=== PATIENT | female | born 1990 | race Caucasian/White ===

== ENCOUNTER 2018-01-01 10:00 | Emergency (ER) | payer OTHER ==
[2018-01-01] MEDS ORDERED: Sodium Chloride 0.9% 1,000 ML IV STA (10:26)
[2018-01-01 10:47] LABS: HCG,QUALITATIVE URINE NEGATIVE (NEGATIVE)
[2018-01-01 10:49] LABS: SQUAMOUS EPITHIAL 4 /hpf (0-5); URINE BILIRUBIN NEGATIVE (NEGATIVE); URINE BLOOD 2+ (NEGATIVE); URINE CLARITY Hazy (Clear); URINE COLOR Yellow (YELLOW); URINE GLUCOSE (UA) NORMAL (Normal); URINE LEUKOCYTE ESTERASE NEG Leu/uL (Negative); URINE PROTEIN NEGATIVE (NEGATIVE); URINE UROBILINOGEN NORMAL mg/dL (0.2-1.0)
[2018-01-01 11:02] LABS: BASO # 0.1 K/uL (0.0-0.2); BASO % 0.4 % (0.0-2.0); EOS # 0.1 K/uL (0.0-0.7); EOS % 0.4 % (0.0-4.0); HEMOGLOBIN 13.7 g/dL (11.0-16.0); LYMPH # 1.8 K/uL (1.0-4.3); LYMPH % 12.3 % (20.0-40.0); MEAN CORPUSCULAR HEMOGLOBIN 29.6 pg (27.0-31.0); MEAN PLATELET VOLUME 8.4 fL (7.2-11.7); MONO # 0.5 K/uL (0.0-0.8); MONO % 3.7 % (0.0-10.0); NEUT # 11.9 K/uL (1.8-7.0); NEUT % 83.2 % (50.0-75.0); RBC 4.64 Mil/uL (3.80-5.20); RED CELL DISTRIBUTION WIDTH 13.1 % (11.5-14.5); WHITE BLOOD COUNT 14.3 K/uL (4.8-10.8)
[2018-01-01] MEDS ORDERED: Morphine 4 MG/ML VIAL ONE (11:02)
[2018-01-01] MEDS ORDERED: Sodium Chloride 0.9% 1,000 ML ONE (11:02)
[2018-01-01 11:13] VITALS: RESP 20
[2018-01-01 11:15] VITALS: O2SAT 100
--- NOTE | 2018-01-01 11:15 | C.PDOC ---
History Of Present Illness 27yo female, presents to ED for evaluation of left lower quadrant discomfort for the past week which has worsened since this morning. Patient reports associated nausea and vomiting as well. She denies any diarrhea, vaginal bleeding or discharge. She states her LMP was on 12/09/17 and was normal. She offers no other medical complaints. Time Seen by Provider: 01/01/18 10:07 Chief Complaint (Nursing): Abdominal Pain History Per: Patient History/Exam Limitations: no limitations Onset/Duration Of Symptoms: Days Current Symptoms Are (Timing): Worse Location Of Pain/Discomfort: LLQ Associated Symptoms: Nausea, Vomiting. denies: Urinary Symptoms Abnormal Vaginal Bleeding: No Last Menstral Period: 12/09/17 Past Medical History Reviewed: Historical Data, Nursing Documentation, Vital Signs Vital Signs: Last Vital Signs Temp 98 F 01/01/18 13:57 Pulse 82 01/01/18 13:57 Resp 20 01/01/18 13:57 BP 116/81 01/01/18 13:57 Pulse Ox 100 01/01/18 14:09 - Medical History PMH: No Chronic Diseases Surgical History: No Surg Hx Family History: States: No Known Family Hx - Social History Hx Alcohol Use: No Hx Substance Use: No - Immunization History Hx Tetanus Toxoid Vaccination: No Hx Influenza Vaccination: No Hx Pneumococcal Vaccination: No Review Of Systems Except As Marked, All Systems Reviewed And Found Negative. Constitutional: Negative for: Fever, Chills Cardiovascular: Negative for: Chest Pain Respiratory: Negative for: Shortness of Breath Gastrointestinal: Positive for: Nausea, Vomiting, Abdominal Pain. Negative for : Diarrhea Genitourinary: Negative for: Vaginal Discharge, Vaginal Bleeding Physical Exam - Physical Exam Appears: Non-toxic, In Acute Distress (painful distress, restless in bed) Skin: Normal Color, Warm, Dry Head: Atraumatic, Normacephalic Eye(s): bilateral: Normal Inspection, PERRL Nose: Normal Oral Mucosa: Moist Throat: Normal, No Erythema, No Exudate Neck: Normal ROM, Supple Chest: Symmetrical Cardiovascular: Rhythm Regular Respiratory: Normal Breath Sounds Gastrointestinal/Abdominal: Soft, Tenderness (tenderness to left suprapubic area ), No Mass, No Guarding, No Rebound Back: Normal Inspection, No CVA Tenderness Extremity: Normal ROM, No Deformity Neurological/Psych: Oriented x3 ED Course And Treatment - Laboratory Results Result Diagrams: 01/01/18 10:55 01/01/18 11:31 O2 Sat by Pulse Oximetry: 100 (RA) Pulse Ox Interpretation: Normal - CT Scan/US CT Abdomen and Pelvis Other Rad Studies (CT/US): Radiology Report Reviewed CT/US Interpretation: PROCEDURE: CT scan abdomen pelvis dated 12/23/2018. HISTORY: Left flank and LLQ pain/hematuria. COMPARISON: No prior study available for comparison. TECHNIQUE: Contiguous axial images of the abdomen pelvis performed without oral or intravenous contrast material. Additional 2 dimensional sagittal and coronal reformats provided. Reformats generated. Radiation dose: Total exam DLP =. This CT exam was performed using one or more of the following dose reduction techniques: Automated exposure control, adjustment of the mA and/or kV according to patient size, and/or use of iterative reconstruction technique. FINDINGS: LOWER THORAX: Unremarkable. Lung bases clear without focal consolidation effusion or pneumothorax. There is tiny hiatal hernia. Heart size is upper limits of normal/borderline enlarged. No significant pericardial effusion. LIVER: Unremarkable. No gross lesion or ductal dilatation. GALLBLADDER AND BILE DUCTS: The gallbladder is physiologically distended. No evidence of intraluminal gallbladder calculi. PANCREAS: Unremarkable. No mass. No ductal dilatation. SPLEEN: Unremarkable. No splenomegaly. ADRENALS: Unremarkable. KIDNEYS AND URETERS: There is asymmetry of the kidneys left-side of which is larger than the right with infiltration changes and perinephric fluid. There is mild dilatation of the left ureter with what appears represent a recently passed 2 mm calculus in the lumen of the urinary bladder. Superimposed infection not excluded. BLADDER: Small of 2 mm calcification present within the lumen of the urinary bladder consistent with recently passed left renal calculus. REPRODUCTIVE: Uterus and adnexal structures unremarkable. APPENDIX: Appendix is not seen with certainty on this study however no obvious inflammatory changes right lower quadrant of the abdomen. BOWEL: Unremarkable. No obstruction. No gross mural thickening. PERITONEUM: Unremarkable. No fluid collection. No free air. LYMPH NODES: Unremarkable. No enlarged lymph nodes. VASCULATURE: Unremarkable. No aortic aneurysm. BONES: No fracture or destructive lesion. OTHER FINDINGS: None. IMPRESSION: Findings consistent with recently passed left-sided 2 mm renal calculus which is now located in the left parasagittal posterior lumen of the urinary bladder. There is mild left-sided perinephric infiltration and fluid. The left kidney is also slightly larger in overall size compared the right kidney. . Note that the possibility of superimposed infection not excluded. Progress Note: Patient given IV Fluids, IV Morphine and Zofran. Labs and urinalysis ordered. Patient is still in pain, Lidocaine IV was ordered with improvement of symptoms. CT Scan reviewed and indicates recently passed kidney stone. Patient stable for discharge home, instructed to follow up with PCP and Urologist in 2-3 days without fail. Reassessment Condition: Improved Disposition - Disposition Referrals: Ady Ling MD [Staff Provider] - Disposition: HOME/ ROUTINE Disposition Time: 14:00 Condition: STABLE Additional Instructions: Follow up with PMD and Urologist within 1-2 days. REturn to ED if feel worse. Prescriptions: Nitrofurantoin Macrocrystals [Macrobid] 1 cap PO BID #14 cap Ibuprofen [Motrin Tab] 600 mg PO Q8 #30 tab Instructions: Renal Colic (DC) Forms: [employer] (Uzbek) - Clinical Impression Clinical Impression: Hx of renal colic - PA / [employer] / Resident Statement MD/DO has reviewed & agrees with the documentation as recorded. - Scribe Statement The provider has reviewed the documentation as recorded by the Scribe (Juana Oneil) Provider Attestation: All medical record entries made by the Scribe were at my direction and personally dictated by me. I have reviewed the chart and agree that the record accurately reflects my personal performance of the history, physical exam, medical decision making, and the department course for this patient. I have also personally directed, reviewed, and agree with the discharge instructions and disposition.
[2018-01-01 11:46] LABS: ALB/GLOB RATIO 1.2 (1.0-2.1); ALBUMIN 3.6 g/dL (3.5-5.0); ALT/SGPT 24 U/L (9-52); AST/SGOT 21 U/L (14-36); BLOOD UREA NITROGEN 12 mg/dL (7-17); CALCIUM 8.3 mg/dl (8.6-10.4); GFR AFRICAN-AMERICAN > 60; GFR NON-AFRICAN AMERICAN > 60; LIPASE 83 U/L (23-300)
[2018-01-01] MEDS ORDERED: LIDOCAINE IV STA (12:47)
[2018-01-01] MEDS ORDERED: SODIUM CHLORIDE 0.9% IV STA (12:47)
--- NOTE | 2018-01-01 12:58 | CT ---
PROCEDURE: CT scan abdomen pelvis dated 12/23/2018 HISTORY: Left flank and LLQ pain/hematuria COMPARISON: No prior study available for comparison TECHNIQUE: Contiguous axial images of the abdomen pelvis performed without oral or intravenous contrast material. Additional 2 dimensional sagittal and coronal reformats provided. Reformats generated. Radiation dose: Total exam DLP = This CT exam was performed using one or more of the following dose reduction techniques: Automated exposure control, adjustment of the mA and/or kV according to patient size, and/or use of iterative reconstruction technique. FINDINGS: LOWER THORAX: Unremarkable. Lung bases clear without focal consolidation effusion or pneumothorax. There is tiny hiatal hernia. Heart size is upper limits of normal/borderline enlarged. No significant pericardial effusion. LIVER: Unremarkable. No gross lesion or ductal dilatation. GALLBLADDER AND BILE DUCTS: The gallbladder is physiologically distended. No evidence of intraluminal gallbladder calculi. PANCREAS: Unremarkable. No mass. No ductal dilatation. SPLEEN: Unremarkable. No splenomegaly. ADRENALS: Unremarkable. KIDNEYS AND URETERS: There is asymmetry of the kidneys left-side of which is larger than the right with infiltration changes and perinephric fluid. There is mild dilatation of the left ureter with what appears represent a recently passed 2 mm calculus in the lumen of the urinary bladder. Superimposed infection not excluded. BLADDER: Small of 2 mm calcification present within the lumen of the urinary bladder consistent with recently passed left renal calculus. REPRODUCTIVE: Uterus and adnexal structures unremarkable. APPENDIX: Appendix is not seen with certainty on this study however no obvious inflammatory changes right lower quadrant of the abdomen. BOWEL: Unremarkable. No obstruction. No gross mural thickening. PERITONEUM: Unremarkable. No fluid collection. No free air. LYMPH NODES: Unremarkable. No enlarged lymph nodes. VASCULATURE: Unremarkable. No aortic aneurysm. BONES: No fracture or destructive lesion. OTHER FINDINGS: None. IMPRESSION: Findings consistent with recently passed left-sided 2 mm renal calculus which is now located in the left parasagittal posterior lumen of the urinary bladder. There is mild left-sided perinephric infiltration and fluid. The left kidney is also slightly larger in overall size compared the right kidney. . Note that the possibility of superimposed infection not excluded.
[2018-01-01] MEDS ORDERED: SODIUM CHLORIDE 0.9% IV ONE (13:15)
[2018-01-01] MEDS ORDERED: LIDOCAINE IV ONE (13:15)
[2018-01-01 13:58] VITALS: BP 116/81; PULSE 82; TEMP 98
== END 2018-01-01 14:38 | disposition home or self-care (01) ==
LOC: C.ER 10:00
DX: N23 Unspecified renal colic (principal)
CPT/HCPCS: 74176; 80053; 81001; 83690; 84703; 85025; 96361; 96374; 96375; 99285; J2001; J2270; J2405; J7040